=== PATIENT | female | born 1960 | race Caucasian/White ===

== ENCOUNTER → 2019-10-10 08:19 | Outpatient (BNVA) | payer BC, SELFPAY | PROVIDERS: Family Provider Family Medicine; PCP Family Medicine; Visit Provider Obstetrics & Gynecology | DX: Z01.419 Encounter for gynecological examination (general) (routine) without abnormal findings (principal); Z78.9 Other specified health status | CPT/HCPCS: 80061; 83036; 84443; 85025 ==

== ENCOUNTER 2019-10-16 14:32 | Outpatient (CLI) | payer BC, SELFPAY ==
--- NOTE | 2019-10-16 14:50 | XRR_ITS ---
PROCEDURE INFORMATION: Exam: XR Left Ankle Exam date and time: 10/16/2019 2:51 PM Age: 59 years old Clinical indication: Patient HX: C/O left ankle swelling and pain -lateral side x 2 months; Additional info: Edema TECHNIQUE: Imaging protocol: XR Left ankle. Views: 1 or 2 views. COMPARISON: No relevant prior studies available. FINDINGS: Bones/joints: Bone spur inferior calcaneus. Negative for acute bony abnormality. Soft tissues: Normal. XR/XR ankle LT 2V [id number] IMPRESSION: No acute bone abnormality. Bone spur inferior calcaneus.
== END 2019-10-16 14:33 | disposition home or self-care (01) ==
PROVIDERS: Family Provider Family Medicine; PCP Family Medicine; Visit Provider Family Medicine
DX: M25.572 Pain in left ankle and joints of left foot (principal); R60.9 Edema, unspecified; M77.32 Calcaneal spur, left foot
CPT/HCPCS: 73600

== ENCOUNTER → 2020-02-20 11:13 | Outpatient (BNVA) | payer BC, SELFPAY | PROVIDERS: Family Provider Family Medicine; PCP Family Medicine; Visit Provider Urology | DX: N30.20 Other chronic cystitis without hematuria (principal) | CPT/HCPCS: 81003 ==

== ENCOUNTER 2020-05-02 22:19 | Emergency (ER) | payer BC, SELFPAY ==
--- NOTE | 2020-05-02 22:20 | XR_ITS ---
WS: [id number] Left ankle, 3 views, 05/02/2020 Clinical Data: injury Comparison: Left ankle, 10/16/2019. Findings: No fractures or dislocations are seen. The ankle mortise is normal. The talus and calcaneus are unrem arkable. There is soft tissue swelling over the lateral malleolus but not the medial malleolus. There is a small Achilles spur and a plantar spur. XR/XR ankle LT min 3V* [id number] Impression: 1. Negative for fracture. 2. Soft tissue swelling over lateral malleolus.
[2020-05-02 22:27] VITALS: BP 196/98; PULSE 92; RESP 18; TEMP 36.6; O2SAT 97; BMI 38.6
--- NOTE | 2020-05-02 22:31 | W.ED.LOWEXIN ---
HPI - Extremity Injury (Lower) General: Chief Complaint: Extremity Injury, Lower Stated Complaint: injured left ankle Time Seen by Provider: 05/02/20 22:20 Source: patient Mode of arrival: wheelchair Limitations: no limitations History of Present Illness: HPI Narrative: Patient is a 60-year-old female who presents to ED today for evaluation of a left ankle injury. Patient tells me she felt like the foot was going to sleep so she stood up to try to walk on it and felt the ankle twist. She is not able to bear weight on the extremity. She is complaining of severe pain. No other injuries or complaints at this time. complaint: ankle injury Onset (ago): minute(s) Injury: Left: ankle Place: home Severity: severe Relieving factors: nothing Exacerbating factors: weight bearing, movement and palpation Context: other (twisting) Associated symptoms: Reports inability to bear weight Other symptoms: none Review of Systems Musc: Reports: joint pain (L ankle), joint swelling (L ankle) and limited range of motion; Denies: neck pain, back pain, extremity pain or extremity swelling Neuro: Denies: numbness in extremities or sensory changes PFSH ED PFSH: Medical History (Updated 05/02/20 @ 23:03 by SOFIA Choe) Asthma States that she has had asthma off and on in the past and is currently not on any medication. Denies any intubations or hospitalizations for asthma. Chronic cystitis Recurrent UTIs initially consistent with chronic cystitis. Prolonged antibiotic with resolution of symptoms. On self treatment program with [facility] with good response. Treating approximately 2 times per year. Irregular heartbeat States that she has an irregular heart rate and is on metoprolol prescribed by her primary care doctor Dr. Kuo. 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 No pertinent past medical history She denies hypertension, diabetes, seizures, DVT/PE Primary care provider: Dr. Kuo Surgical History S/P appendectomy Appendectomy at time of cholecystectomy in 1982. S/P cholecystectomy Open cholecystectomy in 1982. Appendix was taken out of the same time per patient. S/P hernia repair 2009---had a hernia develops in the incision made for cholecystectomy. She states mesh was placed. This was done in 2009 in [place] S/P hysterectomy 1987--AXEL/LSO performed by Dr. Zurita in [place], [place] for bleeding and pain S/P removal of right ovary 1991--She had her right ovary removed by laparoscopy for a cyst. Performed by Dr. Zurita in [place], [place]. S/P tonsillectomy as a young child S/P tubal ligation 1895--Done via her umbilicus Status post surgery 12/23/2000--Anterior colporrhaphy, laparoscopic bladder neck suspension: Surgery was performed by Dr. Zurita for cystocele and stress urinary incontinence. The bladder neck suspension was done with mesh. ---> Operative report was obtained and scanned into the chart. Status post surgery 03/17/2010---anterior colporrhaphy, transobturator Suburethral sling, diagnostic laparoscopy and gewlumstwf76/20/2010---done for pelvic pain, cystocele, stress urinary incontinence by Dr. Zurita at the [facility] ---> Operative report obtained and scanned. Diagnostic laparoscopy was done through an infraumbilical incision. The pelvis was normal except for filmy omental adhesions. In the right upper quadrant where hernia surgery had been performed there were dense adhesions with the bowel adherent in the right upper quadrant. These adhesions were not taken down. Anterior repair was performed and suburethral sling was placed. 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 History of recent travel: No Additional social history: - Tobacco Use: Denies, never smoked Drug Use: Denies Alcohol Use: Denies Work/Study Status: 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 [employer] Physical Exam Const: COMMON NORMALS: average body habitus, patient oriented x3, no limitations, healthy appearing, alert and well nourished GENERAL APPEARANCE: in distress (in pain) ORIENTATION/CONSCIOUSNESS: Yes awake, Yes oriented to person, Yes oriented to place and Yes oriented to time Extremity: NARRATIVE EXTREMITY EXAM: severe swelling noted throughout R ankle joint; patient extremely tender; pt cannot tolerate any form of ROM; NV intact GENERAL: Yes normal exam except as noted Neuro: COMMON NORMALS: patient oriented x3 and no sensory deficits noted SENSORIUM/ORIENTATION: Yes alert, Yes oriented to person, Yes oriented to place and Yes oriented to time Skin: COMMON NORMALS: no rashes or lesions noted GENERAL SKIN EXAM: no rashes or lesions noted Course Vital Signs: Vital signs: Vital Signs Temperature 97.9 F 05/02/20 22:27 Pulse Rate 92 05/02/20 22:27 Respiratory Rate 18 05/02/20 22:27 Blood Pressure 196/98 05/02/20 22:27 Pulse Oximetry 97 05/02/20 22:27 MDM - Extremity Injury (Lower) MDM Narrative: Medical decision making narrative: Patient with marked swelling and tenderness to L ankle. I do not visualize any obvious fractures on her films at this time. I will go ahead and splint her and have her follow up with orthopedics for further evaluation. Imaging Data^: XR L ankle: My impression: diffuse soft tissue swelling; no obvious fxs present; no dislocations Discharge Plan Discharge Patient Disposition: Home Clinical Impression: Severe sprain of left ankle Qualifiers: Encounter type: initial encounter Qualified Code(s): S93.402A - Sprain of unspecified ligament of left ankle, initial encounter Condition: Stable Prescriptions: New hydrocodone-acetaminophen 5-325 mg tablet 1 tab PO Q4H PRN (Reason: pain) Qty: 20 RF: 0 No Action metoprolol tartrate 25 mg tablet 12.5 mg PO BID RF: 0 omeprazole 20 mg capsule,delayed release(DR/EC) 20 mg PO BID RF: 0 multivitamin Capsule 1 cap PO DAILY RF: 0 B Complex Plus Vitamin C 18-03-42-5-300 mg capsule 1 cap PO DAILY RF: 0 ascorbic acid (vitamin C) 500 mg capsule PO RF: 0 calcium carbonate [Calcium 500] 500 mg calcium (1,250 mg) tablet 500 mg PO DAILY RF: 0 estradiol 1 mg tablet 1 mg PO DAILY Qty: 90 RF: 3 meloxicam 7.5 mg tablet 7.5 mg PO DAILY RF: 0 doxycycline hyclate 100 mg capsule 100 mg PO BID PRN (Reason: Cystitis) Qty: 60 RF: 4 Discharge Orders: Discharge ED (Routine); Ordered 05/02/20 Ordered By: Prerna Sprague Referrals: Shimon Kuo MD [Primary Care Provider] - Patient Instructions: RICE Therapy (ED) Activity Restrictions/Additional Instructions: As discussed case management should contact you shortly to set you up with a follow-up appointment with orthopedics. Ice and elevate the extremity as much as possible. You may continue taking your meloxicam for begin taking ibuprofen-do not take both of these medications together. I have given you a prescription for pain medications you may take for severe pain. Coding Level of Care Code ED Child Development Assistant for Chg Fwd Exam Expanded Problem Focused
[2020-05-02] MEDS: morphine 4 mg/mL SDV 1 mL IM (22:36)
[2020-05-02] MEDS: HYDROcodone-acetaminophen 5-325 mg Tablet 2 TAB PO (23:40)
[2020-05-02 23:41] VITALS: BP 145/87; PULSE 89; RESP 17; O2SAT 98
--- NOTE | 2020-05-03 08:40 | DCPLANNER ---
water/wastewater project manager had message to schedule a followup appointment for patient with ortho. water/wastewater project manager called the ortho clinic, spoke with Manuela, gave clinic patients information. water/wastewater project manager was told that patients information would be printed and reviewed. Clinic will call patient with appointment information.
--- NOTE | 2020-05-07 12:27 | DCPLANNER ---
Patient had follow up appt with ortho on 05/06/20 - patient attended.
== END 2020-05-02 23:41 | disposition home or self-care (01) ==
PROVIDERS: Emergency Provider Physician Assistant; PCP Family Medicine
DX: S93.402A Sprain of unspecified ligament of left ankle, initial encounter (principal); X50.1XXA Overexertion from prolonged static or awkward postures, initial encounter
CPT/HCPCS: 12345; 29515; 73610; 96372; 99281; 99283; E0114; J2270

== ENCOUNTER → 2020-05-06 15:20 | Outpatient (BNVA) | payer BC, SELFPAY | PROVIDERS: PCP Family Medicine; Referring Provider Physician Assistant; Visit Provider Specialist | DX: S93.402A Sprain of unspecified ligament of left ankle, initial encounter (principal); X58.XXXA Exposure to other specified factors, initial encounter | CPT/HCPCS: 73610 ==

== ENCOUNTER 2020-05-06 16:18 | Outpatient (CLI) | payer BC, SELFPAY | END 2020-05-06 16:19 | disposition home or self-care (01) | LOC: SPT 16:20 | PROVIDERS: PCP Family Medicine; Visit Provider Specialist | DX: Z46.89 Encounter for fitting and adjustment of other specified devices (principal); M25.572 Pain in left ankle and joints of left foot | CPT/HCPCS: 97760; L4361 ==

== ENCOUNTER → 2020-05-20 15:47 | Outpatient (BNVA) | payer BC, SELFPAY | PROVIDERS: PCP Family Medicine; Visit Provider Specialist | DX: S93.402D Sprain of unspecified ligament of left ankle, subsequent encounter (principal); M25.572 Pain in left ankle and joints of left foot; X58.XXXD Exposure to other specified factors, subsequent encounter | CPT/HCPCS: 73610; 73630 ==

== ENCOUNTER 2020-05-29 15:13 | Outpatient (CLI) | payer BC, SELFPAY ==
--- NOTE | 2020-05-29 15:29 | CT_ITS ---
WS: [id number] NONCONTRAST CT LEFT FOOT TECHNIQUE: Noncontrast CT left foot with coronal and sagittal reformatted images. CLINICAL INFORMATION: S99.929A - Unspecified injury of unspecified foot, initial encounter COMPARISON: Recent radiographs May 20, 2020 DLP: 682.[address] scans at [facility] use at least one of these dose optimization techniques: automat ed exposure control; mA and/or kV adjustment per patient size (includes targeted exams where dose is matched to clinical indication); or iterative reconstruction. FINDINGS: Noncontrast CT of the left foot. Normal ankle mortise. Normal talar dome. No evidence of avascular ne crosis Talar dome. Normal medial and lateral malleolus. Mild soft tissue edema. Well-corticated avuls ion about the tip of the medial malleolus has a chronic appearance. Calcaneous is normal in appearance. Plantar calcaneal spurring. Small Achilles enthesophyte. Metatarsals are normal in appearance. Normal metatarsal bases. Normal navicular. Normal cuboid. Kenisha l visualized tarsal bones. Normal TMT joint. No visualized fractures. CT/CT foot LT wo con* [id number] IMPRESSION: 1. Diffuse soft tissue edema left ankle and foot. 2. Normal ankle mortise. 3. Well-corticated avulsion of the tip of the medial malleolus has a chronic a ppearance. Normal lateral malleolus. Normal talar dome. 4. Calcaneous is normal in appearance. Small plantar calcaneal spur. Tiny Achi lles enthesophyte. 5. Normal metatarsals and TMT joints. Normal navicular.
== END 2020-05-29 15:14 | disposition home or self-care (01) ==
LOC: RADWPI 15:27
PROVIDERS: PCP Family Medicine; Visit Provider Specialist
DX: S99.922A Unspecified injury of left foot, initial encounter (principal); X58.XXXA Exposure to other specified factors, initial encounter; R60.0 Localized edema
CPT/HCPCS: 73700

== ENCOUNTER 2020-06-06 14:47 | Outpatient (CLI) | payer BC, SELFPAY ==
--- NOTE | 2020-06-06 14:57 | MR_ITS ---
WS: [id number] MRI LEFT ANKLE without CONTRAST. COMPARISON: 05/29/2020 and 05/20/2020 Multiplanar, multisequence imaging is performed without contrast. The Achilles tendon is normal. No atrophy or edema. There is a moderate amount of soft tissue edema s urrounding the ankle. Majority of the edema is around the anterior talus and greatest laterally. Ther e is a very small amount of marrow edema seen best on the lateral projection in the anterior talus. S uspect there is probably a cortical injury with a tiny fracture involving the anterior and lateral ta memo. There is a small amount of edema and free fluid. Calcaneus is intact. Distal fibula is normal. P eroneal brevis and longus tendons are normal above the syndesmosis. Distal to the syndesmosis and pos terior to the fibula the brevis tendon becomes very thin and surrounded by fluid. There is a large am ount of fluid surrounding both peroneal tendons. The attachment to the base of the fifth metatarsal i s not evident. The flexor hallucis longus, flexor digitorum longus and the posterior tibial tendon ap pear to be normal. There is increased signal thickening of the posterior talofibular ligament. Ligame nt is not completely torn. High-grade tear involving the anterior talofibular ligament. There is flui d like signal along the expected location of the anterior talofibular ligament. MR/MR ankle LT wo con* [id number] IMPRESSION: 1. Moderate amount of edema surrounding the ankle, greatest laterally. 2. Tiny cortical injury involving the anterior and lateral talus. 3. Peroneus brevis distal to the ankle syndesmosis is not identified along its course. Suspect a high-grade tear with adjacent tendinopathy. The peroneus coni vis cannot be followed to the fifth metatarsal. 4. Partial tear posterior talofibular ligament. 5. High-grade tear involving the anterior talofibular ligament.
== END 2020-06-06 14:48 | disposition home or self-care (01) ==
LOC: RADWPI 14:49
PROVIDERS: PCP Family Medicine; Visit Provider Specialist
DX: R60.0 Localized edema (principal); S93.492A Sprain of other ligament of left ankle, initial encounter; X58.XXXA Exposure to other specified factors, initial encounter
CPT/HCPCS: 73721

== ENCOUNTER → 2020-07-17 15:34 | Outpatient (BNVA) | payer BC, SELFPAY | PROVIDERS: PCP Family Medicine; Referring Provider Specialist; Visit Provider Podiatrist Foot & Ankle Surgery | DX: M25.572 Pain in left ankle and joints of left foot (principal); M21.612 Bunion of left foot | CPT/HCPCS: 73630 ==

== ENCOUNTER 2020-07-17 16:27 | Outpatient (CLI) | payer BC, SELFPAY | END 2020-07-17 16:28 | disposition home or self-care (01) | LOC: SPT 16:28 | PROVIDERS: PCP Family Medicine; Visit Provider Podiatrist Foot & Ankle Surgery | DX: Z46.89 Encounter for fitting and adjustment of other specified devices (principal); M25.572 Pain in left ankle and joints of left foot | CPT/HCPCS: 97760; L1902 ==

== ENCOUNTER → 2021-02-19 11:05 | Outpatient (BNVA) | payer BC, SELFPAY | PROVIDERS: PCP Family Medicine; Visit Provider Urology | DX: N30.20 Other chronic cystitis without hematuria (principal) | CPT/HCPCS: 81003 ==

== ENCOUNTER 2021-04-10 11:50 | Outpatient (CLI) | payer BC, SELFPAY ==
[2021-04-10 12:05] VITALS: BP 142/82; PULSE 82; RESP 20; TEMP 36.7; O2SAT 94; BMI 36.6
[2021-04-10 12:57] VITALS: BP 121/78; PULSE 89; RESP 18; TEMP 36.7; O2SAT 97
[2021-04-10 13:55] VITALS: BP 109/78; PULSE 81; RESP 16; TEMP 36.6; O2SAT 97
== END 2021-04-10 11:51 | disposition home or self-care (01) ==
LOC: OPS 11:52
PROVIDERS: PCP Family Medicine; Visit Provider Family Medicine
DX: U07.1 COVID-19 (principal)
CPT/HCPCS: 96365

== ENCOUNTER → 2021-05-14 14:44 | Outpatient (BNVA) | payer BC, SELFPAY | PROVIDERS: PCP Family Medicine; Visit Provider Nurse Practitioner Family | DX: N30.20 Other chronic cystitis without hematuria (principal) | CPT/HCPCS: 81003; 87077; 87086; 87184 ==

== ENCOUNTER → 2021-06-04 08:11 | Outpatient (BNVA) | payer BC, SELFPAY | PROVIDERS: PCP Family Medicine; Visit Provider Nurse Practitioner Family | DX: N30.20 Other chronic cystitis without hematuria (principal) | CPT/HCPCS: 81003 ==

== ENCOUNTER 2021-08-04 14:09 | Outpatient (CLI) | payer BC, SELFPAY ==
--- NOTE | 2021-08-04 14:30 | US_ITS ---
WS: [id number] ULTRASOUND SOFT TISSUES LEFT foot HISTORY: to rule out Peralta's neuroma COMPARISON: None available. TECHNIQUE: 2-D and color Doppler imaging is submitted. No soft tissue masses of decreased echogenicity between the metatarsal heads. There is no fluid surro unding the joint spaces. US/US soft tissue/extremity [id number] IMPRESSION: Negative ultrasound LEFT foot for Peralta's neuroma.
== END 2021-08-04 14:10 | disposition home or self-care (01) ==
LOC: RAD 14:11
PROVIDERS: PCP Family Medicine; Visit Provider Podiatrist Foot & Ankle Surgery
DX: M79.672 Pain in left foot (principal); M77.42 Metatarsalgia, left foot
CPT/HCPCS: 76882

== ENCOUNTER → 2021-09-10 08:11 | Outpatient (BNVA) | payer BC, SELFPAY | PROVIDERS: PCP Family Medicine; Visit Provider Nurse Practitioner Family | DX: N30.20 Other chronic cystitis without hematuria (principal); M54.9 Dorsalgia, unspecified | CPT/HCPCS: 74018; 81003 ==

== ENCOUNTER 2021-09-22 09:50 | Outpatient (CLI) | payer BC, SELFPAY | END 2021-09-22 09:51 | disposition home or self-care (01) | LOC: SPT 09:51 | PROVIDERS: PCP Family Medicine; Visit Provider Podiatrist Foot & Ankle Surgery | DX: Z46.89 Encounter for fitting and adjustment of other specified devices (principal); S86.312D Strain of muscle(s) and tendon(s) of peroneal muscle group at lower leg level, left leg, subsequent encounter; X58.XXXD Exposure to other specified factors, subsequent encounter | CPT/HCPCS: 97760; L3030 ==

== ENCOUNTER → 2021-10-15 08:36 | Outpatient (BNVA) | payer BC, SELFPAY | PROVIDERS: PCP Family Medicine; Visit Provider Obstetrics & Gynecology | DX: Z00.00 Encounter for general adult medical examination without abnormal findings (principal); R53.83 Other fatigue | CPT/HCPCS: 80061; 83036; 84443; 85025 ==

== ENCOUNTER 2021-11-19 05:14 | Emergency (ER) | payer BC, SELFPAY ==
[2021-11-19 05:32] VITALS: BP 176/90; PULSE 88; RESP 20; TEMP 36.4; O2SAT 96; BMI 38.2
[2021-11-19 05:35] VITALS: PULSE 80; RESP 18; O2SAT 96
--- NOTE | 2021-11-19 05:37 | W.ED.BACK ---
HPI - Back Pain/Injury General: Chief Complaint: Back Pain/Injury Stated Complaint: Right side an back pain Time Seen by Provider: 11/19/21 05:32 Source: patient Mode of arrival: ambulatory History of Present Illness: 61-year-old female presents emergency room complaining of right-sided back pain. No precipitating event. She states it is progressively been worsening since. She denies any fever sweats chills denies any nausea vomiting or diarrhea no hematuria. Localizes the pain to the upper right sacroiliac area and into the right lower quadrant. No hematuria no shortness of breath no cough. MD elicited complaint: back pain Pertinent past history: prior back pain Onset (ago): day(s) (3) Severity: moderate Similar Symptoms Previously: Yes Quality: sharp Location: lumbar spine Radiation: none Exacerbating factors: none Relieving factors: none Associated symptoms: Reports abdominal pain; Deny arthralgias, chills, change in bowel habits, difficulty walking, dysuria, fatigue, fecal incontinence, fever(s), hematuria, myalgias, nausea, numbness, syncope, tingling/numbness/burning, urinary frequency, urinary urgency, vomiting or weakness Review of Systems Const: Denies: fever(s), chills, fatigue or malaise ENMT: Denies: throat pain, ear or mastoid pain, nasal discharge or nasal congestion Card: Denies: chest pain or syncope Resp: Denies: dyspnea, productive cough or non-productive cough GI: Reports: abdominal pain; Denies: nausea, vomiting, fecal incontinence or change in bowel habits : Denies: flank pain, difficulty voiding, dysuria, urinary frequency, urinary urgency or hematuria Skin/Breast: Denies: rash or pruritus Neuro: Denies: difficulty walking [facility] ED PFSH: Medical History Asthma States that she has had asthma off and on in the past and is currently not on any medication. Denies any intubations or hospitalizations for asthma. Chronic cystitis Recurrent UTIs initially consistent with chronic cystitis. Prolonged antibiotic with resolution of symptoms. On self treatment program with DOXYCYCLINE with good response. Treating approximately 2 times per year. Irregular heartbeat States that she has an irregular heart rate and is on metoprolol prescribed by her primary care doctor Dr. Kuo. She does not have a med surg nurse at this time. No pertinent past medical history She denies hypertension, diabetes, seizures, DVT/PE Primary care provider: Dr. Kuo Surgical History S/P appendectomy Appendectomy at time of cholecystectomy in 1982. S/P cholecystectomy Open cholecystectomy in 1982. Appendix was taken out of the same time per patient. S/P hernia repair 2009---had a hernia develops in the incision made for cholecystectomy. She states mesh was placed. This was done in 2009 in [place] S/P hysterectomy 1987--AXEL/LSO performed by Dr. Zurita in [place], [place] for bleeding and pain S/P removal of right ovary 1991--She had her right ovary removed by laparoscopy for a cyst. Performed by Dr. Zurita in [place], [place]. S/P tonsillectomy as a young child S/P tubal ligation 1895--Done via her umbilicus Status post surgery 12/23/2000--Anterior colporrhaphy, laparoscopic bladder neck suspension: Surgery was performed by Dr. Zurita for cystocele and stress urinary incontinence. The bladder neck suspension was done with mesh. ---> Operative report was obtained and scanned into the chart. Status post surgery 03/17/2010---anterior colporrhaphy, transobturator Suburethral sling, diagnostic laparoscopy and dxudilelyf28/20/2010---done for pelvic pain, cystocele, stress urinary incontinence by Dr. Zurita at the [facility] ---> Operative report obtained and scanned. Diagnostic laparoscopy was done through an infraumbilical incision. The pelvis was normal except for filmy omental adhesions. In the right upper quadrant where hernia surgery had been performed there were dense adhesions with the bowel adherent in the right upper quadrant. These adhesions were not taken down. Anterior repair was performed and suburethral sling was placed. Family History Mother Hyperlipidemia Thyroid condition Diabetes Heart disease Hypertension Father Hyperlipidemia Heart disease Grandmother Colon cancer maternal, age at diagnosis unknown Diabetes maternal Family/Other Diabetes maternal aunts Grandfather Diabetes maternal Denies family history of Ovarian cancer Breast cancer Anesthesia complication Bleeding disorder Uterine cancer Stroke Physical Exam Const: COMMON NORMALS: no acute distress GENERAL APPEARANCE: cooperative and comfortable ORIENTATION/CONSCIOUSNESS: Yes awake, Yes oriented to person, Yes oriented to place and Yes oriented to time HENMT: COMMON NORMALS: normocephalic, atraumatic and hearing grossly normal bilaterally HEAD & SCALP: normocephalic and atraumatic Resp: COMMON NORMALS: normal respiratory effort, No retractions, No use of accessory muscles and clear to auscultation bilaterally AUSCULTATION: clear to auscultation bilaterally Cardio: COMMON NORMALS: regular rate, regular rhythm and No murmurs present (Cardio) RATE: regular rate RHYTHM: regular rhythm GI: COMMON NORMALS: No hepatosplenomegaly present AUSCULTATION: Yes normoactive bowel sounds PALPATION: Yes Tenderness to palpation present (GI) Details: RLQ, No Guarding due to palpation present (GI) and Yes No hepatosplenomegaly present Extremity: COMMON NORMALS: normal to inspection, capillary refill normal, no clubbing, cyanosis or edema, no calf tenderness and no pedal edema Neuro: SENSORIUM/ORIENTATION: Yes oriented to person, Yes oriented to place and Yes oriented to time Skin: COMMON NORMALS: no rashes or lesions noted GENERAL SKIN EXAM: no rashes or lesions noted Course Vital Signs: Vital signs: Vital Signs Temperature 97.6 F 11/19/21 05:32 Pulse Rate 76 11/19/21 07:30 Respiratory Rate 17 11/19/21 06:19 Blood Pressure 153/83 11/19/21 07:30 Pulse Oximetry 97 11/19/21 07:30 Oxygen Delivery Me thod 11/19/21 07:30 MDM - Back Pain/Injury Medical Decision Making Labs and imaging unremarkable. Patient reported pain in the right lower quadrant. She previously had a appendectomy however she had a little bit of an unusual pattern of pain radiating into the abdominal area beyond that her exam was consistent with a very positional reproducible pain is musculoskeletal in nature. CT did not show any acute intra-abdominal pathology and labs normal including urine. Treat his musculoskeletal back pain discharge home steroid taper to start tomorrow given IV steroids here can use diclofenac and tizanidine if not improving follow-up with PCP for further evaluation or consideration of referral for physical therapy Medical Records I reviewed the patient's medical records. Labs I reviewed the patient's lab results. : 11/19/21 05:35 11/19/21 05:35 Radiology Impressions Abdomen/Pelvis CT 11/19/21 05:53 IMPRESSION: No acute abnormalities are seen in the abdomen and pelvis. Laboratory Results WBC 8.6 10^3/uL (4.0-10.0) 11/19/21 05:35 RBC 4.27 10^6/uL (4.1-5.3) 11/19/21 05:35 Hgb 13.0 g/dL (11.5-15.3) 11/19/21 05:35 Hct 40.4 % (37.0-47.0) 11/19/21 05:35 MCV 94.6 fl (81-99) 11/19/21 05:35 MCH 30.4 pg (28.0-34.0) 11/19/21 05:35 MCHC 32.2 g/dL (30.0-36.0) 11/19/21 05:35 RDW 13.2 % (12.1-15.1) 11/19/21 05:35 Plt Count 148 10^3/cmm (130-400) 11/19/21 05:35 MPV 12.0 fL (7.4-10.4) H 11/19/21 05:35 Neut % (Auto) 54.6 % 11/19/21 05:35 Lymph % (Auto) 36.1 % 11/19/21 05:35 [place] % (Auto) 7.2 % 11/19/21 05:35 Eos % (Auto) 1.6 % 11/19/21 05:35 Baso % (Auto) 0.3 % 11/19/21 05:35 Neut # (Auto) 4.69 10^3/uL (1.8-7.7) 11/19/21 05:35 Lymph # (Auto) 3.1 10^3/uL (0.8-4.8) 11/19/21 05:35 [place] # (Auto) 0.6 10^3/uL (0.2-0.9) 11/19/21 05:35 Eos # (Auto) 0.1 10^3/uL (0.0-0.8) 11/19/21 05:35 Baso # (Auto) 0.0 10^3/uL (0.0-0.1) 11/19/21 05:35 Nucleated RBC % (auto) 0 % 11/19/21 05:35 Nucleated RBCs # 0.0 /100WBC 11/19/21 05:35 Sodium 137 mmol/L (136-145) 11/19/21 05:35 Potassium 4.7 mmol/L (3.5-5.1) 11/19/21 05:35 Chloride 103 mmol/L (98-107) 11/19/21 05:35 Carbon Dioxide 23 mmol/L (22-29) 11/19/21 05:35 Anion Gap 15.7 (5-19) 11/19/21 05:35 BUN 12 mg/dL (6-20) 11/19/21 05:35 Creatinine 0.7 mg/dL (0.5-0.9) 11/19/21 05:35 GFR Calculation 85.6 mL/min (90-130) L 11/19/21 05:35 Glucose 94 mg/dL (65-115) 11/19/21 05:35 Calculated Osmolality 284 mOsm/kg (285-295) L 11/19/21 05:35 Calcium 9.3 mg/dL (8.5-10.5) 11/19/21 05:35 Total Bilirubin 0.4 mg/dL (0.15-1.2) 11/19/21 05:35 AST 26 U/L (0-32) 11/19/21 05:35 ALT 14 U/L (0-33) 11/19/21 05:35 Alkaline Phosphatase 117 U/L (35-105) H 11/19/21 05:35 Total Protein 7.4 g/dL (6.6-8.7) 11/19/21 05:35 Albumin 3.7 g/dL (3.5-5.2) 11/19/21 05:35 Globulin 3.7 g/dL (1.3-4.6) 11/19/21 05:35 Urine Color Yellow (Yellow) 11/19/21 06:15 Urine Appearance Clear (CLEAR) 11/19/21 06:15 Urine pH 6 (5-7) 11/19/21 06:15 Ur Specific [place] 1.010 (1.005-1.030) 11/19/21 06:15 Urine Protein Neg (Negative) 11/19/21 06:15 Urine Glucose (UA) Norm (Normal) 11/19/21 06:15 Urine Ketones Negative (Negative) 11/19/21 06:15 Urine Blood Neg (Negative) 11/19/21 06:15 Urine Nitrate Negative (Negative) 11/19/21 06:15 Urine Bilirubin Neg (Negative) 11/19/21 06:15 Urine Urobilinogen Norm mg/dL (Negative) 11/19/21 06:15 Ur Leukocyte Esterase Negative (Negative) 11/19/21 06:15 Discharge Plan Discharge Patient Disposition: Home Clinical Impression: Strain of lumbar region Condition: Stable Prescriptions: New prednisone 20 mg tablet 20 mg PO TID Qty: 15 0RF Rx Instructions: 1 p.o. 3 times daily x3 days, 1 p.o. twice daily x2 days, 1 p.o. daily x2 days diclofenac sodium 75 mg tablet,delayed release (DR/EC) 75 mg PO Q12H PRN (Reason: pain) Qty: 20 0RF tizanidine 4 mg capsule 4 mg PO Q6H PRN (Reason: muscle spasticity) Qty: 20 0RF Rx Instructions: do not exceed 3 doses per 24 hrs Held meloxicam 15 mg tablet 15 mg PO DAILY 30 Days Qty: 30 3RF Hold Instructions: Resume on 11/30/21. Hold while taking diclofenac No Action omeprazole 20 mg capsule,delayed release(DR/EC) 20 mg PO BID multivitamin Capsule 1 cap PO DAILY B Complex Plus Vitamin C 35-58-16-5-300 mg capsule 1 cap PO DAILY Rx Instructions: give with food (meal/snack) ascorbic acid (vitamin C) 500 mg capsule PO calcium carbonate [Calcium 500] 500 mg calcium (1,250 mg) tablet 500 mg PO DAILY metoprolol tartrate 25 mg tablet 25 mg PO BID (DME) smo built into a carbon fiber afo to the left. See Rx Instructions .Route .MEDSUPPLY Qty: 1 0RF Rx Instructions: As directed by alpha and omega estradiol 1 mg tablet 1 mg PO DAILY Qty: 90 3RF fexofenadine [Génesis Allergy] 60 mg tablet 60 mg PO DAILY PRN omega-3 fatty acids 500 mg capsule 500 mg PO DAILY acetaminophen [Tylenol Extra Strength] 500 mg tablet 500 mg PO Q6H PRN (DME) Custom Molded Orthotics See Rx Instructions .Route .MEDSUPPLY Qty: 1 0RF Rx Instructions: As directed nitrofurantoin monohyd/m-cryst 100 mg capsule See Rx Instructions .ROUTE .COMPLEX Qty: 60 2RF Dose Instruction: TAKE 1 CAPSULE BY MOUTH TWICE DAILY WITH FOOD Rx Instructions: TAKE 1 CAPSULE BY MOUTH TWICE DAILY WITH FOOD estradiol 0.5 mg tablet 0.5 mg PO DAILY 23 Days Qty: 30 0RF Discharge Orders: Discharge ED (Routine); Ordered 11/19/21 Ordered By: Martin Hale Referrals: Shimon Kuo MD [Primary Care Provider] - Discharge Diet: Usual diet Discharge Activity: Increase activity as tolerated Patient Instructions: Opioid Safety Activity Restrictions/Additional Instructions: If not improving follow-up with your primary care physician. Coding Level of Care Code ED Family Specialist for [place] Fwd Exam Detailed
--- NOTE | 2021-11-19 05:53 | CTR_ITS ---
PROCEDURE INFORMATION: Exam: CT Abdomen And Pelvis Without Contrast Exam date and time: 11/19/2021 6:32 AM Age: 61 years old Clinical indication: Abdominal pain; Localized; Right lower quadrant (rlq); Prior surgery; Surgery type: Appy, gb, hernia, bladder repair, hyst; Patient HX: RT sided back pain and rlq pain x 2 days TECHNIQUE: Imaging protocol: Computed tomography of the abdomen and pelvis without contrast. Radiation optimization: All CT scans at this facility use at least one of these dose optimization techniques: automated exposure control; mA and/or kV adjustment per patient size (includes targeted exams where dose is matched to clinical indication); or iterative reconstruction. COMPARISON: CT abdomen pelvis con [id number] 03/20/2018 6:46 PM RADIATION DOSE METRICS: Total DLP (mGy-cm): 935.9 FINDINGS: Liver: Normal. No mass. Gallbladder and bile ducts: Cholecystectomy. Normal bile ducts. Pancreas: Normal. No ductal dilation. Spleen: There are numerous tiny benign calcified granulomas in the spleen. Adrenal glands: Normal. No mass. Kidneys and ureters: Normal. No hydronephrosis. Stomach and bowel: Sigmoid diverticulosis. No evidence of acute diverticulitis. There is no significant bowel dilatation and no evidence of bowel obstruction. Appendix: No evidence of appendicitis. Intraperitoneal space: Unremarkable. No free air. No significant fluid collection. Vasculature: Unremarkable. No abdominal aortic aneurysm. Lymph nodes: Unremarkable. No enlarged lymph nodes. Urinary bladder: Unremarkable as visualized. Reproductive: Unremarkable as visualized. Bones/joints: Unremarkable. No acute fracture. Soft tissues: Postsurgical changes are present consistent with bilateral inguinal hernia repair. No evidence of hernia recurrence. CT/CT abdomen pelvis [facility] [id number] IMPRESSION: No acute abnormalities are seen in the abdomen and pelvis.
[2021-11-19 06:00] LABS: Basophils % 0.3 %; Eosinophils # 0.1 10^3/uL (0.0-0.8); Eosinophils % 1.6 %; Hematocrit 40.4 % (37.0-47.0); Lymphocytes # 3.1 10^3/uL (0.8-4.8); Lymphocytes % 36.1 %; Mean Corpuscular HGB Conc 32.2 g/dL (30.0-36.0); Mean Corpuscular Hemoglobin 30.4 pg (28.0-34.0); Mean Corpuscular Volume 94.6 fl (81-99); Monocytes # 0.6 10^3/uL (0.2-0.9); Monocytes % 7.2 %; Neutrophils # 4.69 10^3/uL (1.8-7.7); Neutrophils % 54.6 %; Nucleated Red Blood Cells % 0 %; Platelet Count 148 10^3/cmm (130-400); Red Blood Count 4.27 10^6/uL (4.1-5.3); Red Cell Distribution Width 13.2 % (12.1-15.1); White Blood Count 8.6 10^3/uL (4.0-10.0)
[2021-11-19] MEDS: ketorolac 60 mg/2 mL INJ IM (06:01)
[2021-11-19] MEDS: orphenadrine 30 mg/mL Inj 2 mL 60 MG IM (06:02)
[2021-11-19] MEDS: dexamethasone 10 mg/mL INJ IM (06:02)
[2021-11-19 06:19] VITALS: BP 150/64; PULSE 76; RESP 17; O2SAT 97
[2021-11-19 06:23] LABS: Albumin Level 3.7 g/dL (3.5-5.2); Alkaline Phosphatase 117 U/L (35-105); Blood Urea Nitrogen 12 mg/dL (6-20); Calcium 9.3 mg/dL (8.5-10.5); Carbon Dioxide 23 mmol/L (22-29); Chloride 103 mmol/L (98-107); Globulin 3.7 g/dL (1.3-4.6); Glomerular Filtration Rate 85.6 mL/min (90-130); Glucose 94 mg/dL (65-115); Osmolality Calculated 284 mOsm/kg (285-295); Sodium 137 mmol/L (136-145); Total Bilirubin 0.4 mg/dL (0.15-1.2); Total Protein 7.4 g/dL (6.6-8.7)
[2021-11-19 06:29] LABS: Anion Gap 15.7 (5-19); Potassium 4.7 mmol/L (3.5-5.1)
[2021-11-19 06:30] LABS: Alanine Aminotransferase 14 U/L (0-33); Aspartate Amino Transferase 26 U/L (0-32)
[2021-11-19 06:50] LABS: Add Urine Microscopic? NO; Charge for UA Resulting for Rev
[2021-11-19 07:04] LABS: Bilirubin Urine Neg (Negative); Blood Urine Neg (Negative); Glucose Urine UA Norm (Normal); Ketones Urine Negative (Negative); Leukocyte Esterase Urine Negative (Negative); Nitrate Urine Negative (Negative); Protein Urine Neg (Negative); Urine Appearance Clear (CLEAR); Urine Color Yellow (Yellow); Urobilinogen Urine Norm (Negative); pH Urine 6 (5-7)
--- NOTE | 2021-11-19 07:27 | PC.NURSE ---
pt reports right sided back pain described as stinging. Rates pain 7/10 and that it has improved since medications were given. Reports stinging with urination, denies blood in urine. Reports hx of UTIs and is on long time antibiotics. Pt lung sounds are clear, bowel sounds present.
[2021-11-19 07:30] VITALS: BP 153/83; PULSE 76; O2SAT 97
[2021-11-19 07:53] VITALS: PULSE 70; RESP 16; O2SAT 97
== END 2021-11-19 07:55 | disposition home or self-care (01) ==
PROVIDERS: Emergency Provider Family Medicine; PCP Family Medicine
DX: S39.012A Strain of muscle, fascia and tendon of lower back, initial encounter (principal); X58.XXXA Exposure to other specified factors, initial encounter
CPT/HCPCS: 74176; 80053; 81003; 85025; 96372; 99285; J1100; J1885; J2360

== ENCOUNTER → 2021-12-11 16:14 | Outpatient (BNVA) | payer BC, SELFPAY | PROVIDERS: PCP Family Medicine; Visit Provider Urology | DX: N30.20 Other chronic cystitis without hematuria (principal) | CPT/HCPCS: 87086 ==

== ENCOUNTER → 2021-12-25 11:07 | Outpatient (BNVA) | payer BC, SELFPAY | PROVIDERS: PCP Family Medicine; Visit Provider Urology | DX: N30.20 Other chronic cystitis without hematuria (principal) | CPT/HCPCS: 81003 ==

== ENCOUNTER → 2022-03-10 10:37 | Outpatient (BNVA) | payer BC, SELFPAY | PROVIDERS: PCP Family Medicine; Visit Provider Urology | DX: N30.20 Other chronic cystitis without hematuria (principal); R60.9 Edema, unspecified; R20.2 Paresthesia of skin; R53.83 Other fatigue | CPT/HCPCS: 80053; 81003; 82306; 82607; 83880; 84443; 86140 ==

== ENCOUNTER → 2022-04-02 10:12 | Outpatient (BNVA) | payer BC, SELFPAY | PROVIDERS: PCP Family Medicine; Visit Provider Family Medicine | DX: R20.2 Paresthesia of skin (principal); R60.9 Edema, unspecified; M19.90 Unspecified osteoarthritis, unspecified site; R53.83 Other fatigue | CPT/HCPCS: 80053; 83880; 85025; 86140; 86160; 86162; 86235; 86255; 86376; 86431; 86618; 86666; 86757 ==

== ENCOUNTER 2022-07-27 13:18 | Outpatient (CLI) | payer BC, SELFPAY | END 2022-07-27 13:19 | disposition home or self-care (01) | LOC: SPT 13:18 | PROVIDERS: PCP Family Medicine; Visit Provider Podiatrist Foot & Ankle Surgery | DX: Z46.89 Encounter for fitting and adjustment of other specified devices (principal); M25.372 Other instability, left ankle | CPT/HCPCS: 97760; L1902 ==

== ENCOUNTER → 2022-09-08 11:28 | Outpatient (BNVA) | payer BC, SELFPAY | PROVIDERS: PCP Family Medicine; Visit Provider Urology | DX: N30.20 Other chronic cystitis without hematuria (principal) | CPT/HCPCS: 81003 ==

== ENCOUNTER → 2022-11-23 13:45 | Outpatient (BNVA) | payer BC, SELFPAY | PROVIDERS: PCP Family Medicine; Visit Provider Family Medicine | DX: R07.9 Chest pain, unspecified (principal); I49.9 Cardiac arrhythmia, unspecified; R00.2 Palpitations | CPT/HCPCS: 80053; 82607; 83735; 84443; 84484; 85025; 85379; 86140 ==

== ENCOUNTER 2022-12-16 14:58 | Outpatient (CLI) | payer BC, SELFPAY | END 2022-12-16 14:59 | disposition home or self-care (01) | LOC: SPT 14:59 | PROVIDERS: PCP Family Medicine; Visit Provider Podiatrist Foot & Ankle Surgery | DX: Z46.89 Encounter for fitting and adjustment of other specified devices (principal); S86.312D Strain of muscle(s) and tendon(s) of peroneal muscle group at lower leg level, left leg, subsequent encounter; S93.402D Sprain of unspecified ligament of left ankle, subsequent encounter; M19.079 Primary osteoarthritis, unspecified ankle and foot; X58.XXXD Exposure to other specified factors, subsequent encounter | CPT/HCPCS: 97760; L3030 ==

== ENCOUNTER → 2023-10-18 09:42 | Outpatient (BNVA) | payer BC, SELFPAY | PROVIDERS: PCP Family Medicine; Visit Provider Clinical Nurse Specialist Adult Health | DX: R30.0 Dysuria (principal); N30.20 Other chronic cystitis without hematuria; N39.0 Urinary tract infection, site not specified | CPT/HCPCS: 81000; 87086 ==

== ENCOUNTER → 2023-12-16 08:05 | Outpatient (BNVA) | payer BC, SELFPAY | PROVIDERS: PCP Family Medicine; Visit Provider Clinical Nurse Specialist Adult Health | DX: R30.0 Dysuria (principal) | CPT/HCPCS: 81000; 87086 ==

== ENCOUNTER → 2024-01-13 12:37 | Outpatient (BNVA) | payer BC, SELFPAY | PROVIDERS: PCP Family Medicine; Visit Provider Family Medicine | DX: Z00.00 Encounter for general adult medical examination without abnormal findings (principal) | CPT/HCPCS: 80053; 80061 ==

== ENCOUNTER → 2024-03-23 11:30 | Outpatient (BNVA) | payer BC, SELFPAY | PROVIDERS: PCP Family Medicine; Visit Provider Family Medicine | DX: R05.9 Cough, unspecified (principal) | CPT/HCPCS: 87400 ==

== ENCOUNTER → 2024-08-03 08:34 | Outpatient (BNVA) | payer BC, SELFPAY | PROVIDERS: PCP Family Medicine; Visit Provider Podiatrist Foot & Ankle Surgery | DX: M25.572 Pain in left ankle and joints of left foot (principal); S93.402A Sprain of unspecified ligament of left ankle, initial encounter; M65.972 Unspecified synovitis and tenosynovitis, left ankle and foot; X50.1XXA Overexertion from prolonged static or awkward postures, initial encounter | CPT/HCPCS: 73610 ==

== ENCOUNTER → 2024-08-16 10:41 | Outpatient (BNVA) | payer BC, SELFPAY | PROVIDERS: PCP Family Medicine; Visit Provider Family Medicine | DX: F41.9 Anxiety disorder, unspecified (principal); F32.A Depression, unspecified; R53.83 Other fatigue | CPT/HCPCS: 80053; 80061; 82607; 83880; 84443; 85025 ==

== ENCOUNTER 2024-10-02 13:34 | Outpatient (CLI) | payer BC, SELFPAY ==
--- NOTE | 2024-10-02 13:38 | XRR_ITS ---
PROCEDURE INFORMATION: Exam: XR Right Hip Exam date and time: 10/02/2024 1:52 PM Age: 64 years old Clinical indication: Hip pain; Right hip TECHNIQUE: Imaging protocol: Radiologic exam of the right hip. Views: 1 view hip with pelvis when performed. COMPARISON: CT abdomen pelvis wo con [id number] 11/19/2021 6:32 AM FINDINGS: Bones/joints: Mild degenerative changes of the right hip joint. Moderate pubic symphysis degenerative changes. No acute fracture or traumatic malalignment. Soft tissues: Unremarkable. Intraperitoneal space: Metallic clip surround the fore pelvis. The visualized right hemipelvis appears intact. XR/XR hip RT 2-3V wo/w pel* [id number] IMPRESSION: As above.
--- NOTE | 2024-10-02 13:38 | XRR_ITS ---
PROCEDURE INFORMATION: Exam: XR Lumbosacral Spine Exam date and time: 10/02/2024 1:52 PM Age: 64 years old Clinical indication: Low back pain TECHNIQUE: Imaging protocol: Radiologic exam of the lumbosacral spine. Views: 2 or 3 views. COMPARISON: CT abdomen pelvis wo con [id number] 11/19/2021 6:32 AM FINDINGS: Bones/joints: Mild multilevel degenerative facet, disc and spondylosis of the lumbar spine. Otherwise preserved vertebral body heights and alignment. Soft tissues: Unremarkable. XR/XR lumbar spine 2-3V* [id number] IMPRESSION: As above.
== END 2024-10-02 13:35 | disposition home or self-care (01) ==
LOC: RAD 13:35
PROVIDERS: PCP Family Medicine; Visit Provider Family Medicine
DX: M54.9 Dorsalgia, unspecified (principal); G89.29 Other chronic pain; M51.360 Other intervertebral disc degeneration, lumbar region with discogenic back pain only; M47.816 Spondylosis without myelopathy or radiculopathy, lumbar region; M89.8X0 Other specified disorders of bone, multiple sites
CPT/HCPCS: 72100; 73502

== ENCOUNTER → 2025-01-04 10:36 | Outpatient (BNVA) | payer BC, SELFPAY | PROVIDERS: PCP Family Medicine; Visit Provider Family Medicine | DX: F41.9 Anxiety disorder, unspecified (principal); F32.A Depression, unspecified; I49.9 Cardiac arrhythmia, unspecified; R00.2 Palpitations | CPT/HCPCS: 80053; 83880; 84443; 84484; 85025; 86140 ==

== ENCOUNTER 2025-01-11 07:13 | Outpatient (CLI) | payer BC, SELFPAY ==
--- NOTE | 2025-01-11 | ECG_ITS ---
[facility]25[facility]11 Pat Name: Hany Cool Department: Room: Gender: Female Rn Clinical Documentation Specialist: : 1960 Requested By: Shimon Riggs Order Number: [id number] Michaud MD: Ritchie Santos M.D. Interpretive Statements Procedure: The patient was exercised by the Ravinder protocol. Findings: The patient's resting blood pressure was 138/87 with a heart rate of 91. the patient exercised for 5 minutes and 16 seconds reaching a maximum heart rate of 152 bpm which is 96% of the patient's maximal predicted heart rate. The peak blood pressure was 194/87. At the end of recovery the patient's blood pressure was 133/76 with a heart rate of 95 bpm. Baseline EKG showed normal sinus rhythm with a right bundle branch block. There were no new ST-T wave abnormalities during the stress test. CONCLUSION: 1. Exercise capacity was average for age. 2. Heart rate response was appropriate. 3. Blood pressure response was appropriate. 4. No symptoms of angina during exercise. 5. Electrocardiogram portion of the stress test without evidence of ischemia. 6. Nuclear scan will be documented separately. Electronically Signed On 01-11-2025 13:07:23 CDT by Ritchie Santos M.D. [email or web address]
[2025-01-11 07:42] VITALS: BMI 38.9
--- NOTE | 2025-01-11 07:45 | NMCV_ITS ---
NM delmy perf SPECT r/s* [id number] Hany Cool Age: 64 Gender: F : 1960 Exam Date: 01/11/2025 08:22 Ordering Phys: Shimon Kuo MD Technologist: NADER Kramer Exam Location: [facility] Indications: CP STRESS TEST Please see separate stress test report in [facility] for full findings IMAGE PROTOCOL Rest/Stress 1 Exercise Day Radiopharmaceutical Dose (mCi) Administration Site Administered by Rest: Tc-99m 10.5 IV Haley Sunshine, SALES SUPPORT CONSULTANT Sestamibi Stress:Tc-99m 32.8 IV Haley Sunshine, SALES SUPPORT CONSULTANT Sestamibi Rest: 11-Jan-2025 60 Discovery 630 Stress: 11-Jan-2025 15 Discovery 630 Radiopharmaceutical was injected at 94 % maximum heart rate. Images obtained in supine and prone position. SPECT RESULTS Technical Quality: Good Raw Data Analysis: Normal Image Corrections: No attenuation or motion correction applied Summed Stress Score: 0 Summed Rest Score: 0 Summed Difference Score: 0 PERFUSION FINDINGS SPECT images demonstrate homogeneous tracer distribution throughout the myocardium. FUNCTIONAL RESULTS (calculated via Gated SPECT) Stress Image LV EF (%): 81 Stress EDV (mL):59 TID: 0.6 Stress ESV (mL):11 FUNCTIONAL FINDINGS: There is normal left ventricular systolic function. EF 81%. IMPRESSIONS Myocardial perfusion imaging is normal. There is normal left ventricular systolic function. EF 81%. Ritchie Santos MD, FACC (Electronically Signed) Final Date: 11 January 2025 12:58 S
[2025-01-11 09:11] VITALS: BP 148/78; PULSE 96
== END 2025-01-11 07:14 | disposition home or self-care (01) ==
LOC: CDL 07:18
PROVIDERS: PCP Family Medicine; Visit Provider Family Medicine
DX: R07.9 Chest pain, unspecified (principal)
CPT/HCPCS: 36415; 78452; 93017; A9500

== ENCOUNTER → 2025-02-08 09:13 | Outpatient (BNVA) | payer BC, SELFPAY | PROVIDERS: PCP Family Medicine; Visit Provider Family Medicine | DX: R30.0 Dysuria (principal); R51.9 Headache, unspecified; M19.90 Unspecified osteoarthritis, unspecified site | CPT/HCPCS: 81000; 87086 ==

== ENCOUNTER → 2025-03-13 10:13 | Outpatient (BNVA) | payer BC, SELFPAY | PROVIDERS: PCP Family Medicine; Visit Provider Family Medicine | DX: Z00.00 Encounter for general adult medical examination without abnormal findings (principal) | CPT/HCPCS: 80053; 80061; 83036; 85025 ==